=== PATIENT | female | born 1970 | race Caucasian/White ===

== ENCOUNTER 2019-03-12 17:25 | Emergency (ER) | payer OTHER ==
[~2019-03-12] VITALS: Ht 154.9 cm; Wt 87.5 kg
[2019-03-12 19:04] LABS: BILIRUBIN,URINE NEGATIVE (NEGATIVE); CLARITY,URINE SL CLOUDY (CLEAR); COLOR,URINE YELLOW (YELLOW); KETONES,URINE NEGATIVE (NEGATIVE); LEUKOCYTE ESTERASE ,URINE NEGATIVE (NEGATIVE); NITRITE,URINE NEGATIVE (NEGATIVE); PROTEIN,URINE DIPSTICK TRACE (NEGATIVE); URINE UROBILINOGEN 0.2 mg/dL (0.2 - 1)
[2019-03-12 19:18] LABS: BACTERIA,URINE MANY /HPF; EPITHELIAL CELLS,URINE MODERATE /LPF; RBC,URINE 0-5 /HPF (0-5)
[2019-03-12 19:23] LABS: PREGNANCY TEST, URINE NEGATIVE (NEGATIVE)
[2019-03-12] MEDS ORDERED: ONDANSETRON HCL INJ 2MG/ML 2ML 2 MG/ML VIAL IV ONE (20:03)
[2019-03-12] MEDS ORDERED: SODIUM CHLORIDE 0.9% 1000ML 1,000 ML IV STA (20:03)
[2019-03-12] MEDS ORDERED: SODIUM CHLORIDE 0.9% 1000ML 1,000 ML ONE (20:05)
[2019-03-12] MEDS ORDERED: ONDANSETRON HCL INJ 2MG/ML 2ML 2 MG/ML VIAL ONE (20:05)
[2019-03-12] MEDS ORDERED: MORPHINE SULFATE INJ 4 MG/ML INJ 1ML IV ONE (20:30)
[2019-03-12 21:03] LABS: BASOPHILS # (AUTO) 0.1 (0.0-0.1); BASOPHILS % 0.6 % (0.0-1.0); EOSINOPHILS % 0.1 % (0.0-6.0); HEMATOCRIT 42.8 % (34.2-44.1); HEMOGLOBIN 14.8 g/dL (12.0-16.0); LYMPHOCYTES # (AUTO) 1.3 (1.0-3.2); LYMPHOCYTES % 15.4 % (18.0-39.1); MEAN CORPUSCULAR HEMOGLOBIN 31.8 pg (28-32); MEAN CORPUSCULAR HGB CONC 34.6 g/dL (31-35); MONOCYTES # (AUTO) 0.9 (0.2-0.8); MONOCYTES % 10.2 % (4.4-11.3); NEUTROPHILS # (AUTO) 6.3 (2.1-6.9); NEUTROPHILS % 73.2 % (38.7-80.0); PLATELET COUNT 270 x10e3/uL (140-360); RED BLOOD COUNT 4.65 x10e6/uL (3.6-5.1); RED CELL DISTRIBUTION WIDTH 12.9 % (11.7-14.4)
[2019-03-12 21:22] LABS: AMYLASE 67 U/L (25-125); LIPASE 85 U/L (8-78)
[2019-03-12 21:42] LABS: ALBUMIN 3.5 g/dL (3.5-5.0); ALBUMIN/GLOBULIN RATIO 0.9 (0.8-2.0); ANION GAP 16.9 mmol/L (8-16); CALCIUM 9.8 mg/dL (8.4-10.2); CREATININE, SERUM 1.38 mg/dL (0.57-1.11)
[2019-03-12 21:44] LABS: POTASSIUM 2.9 mmol/L (3.5-5.1)
--- NOTE | 2019-03-12 21:45 | NUR ---
RECEIVED CALL FROM LAB TO REPORT CRITICAL K+ OF 2.9, INFORMED DR. DAVIES AND PRIMARY NURSE KATHY SOTO.
[2019-03-12] MEDS ORDERED: POTASSIUM CHLORIDE 20 MEQ TAB CR PO ONE (21:46)
[2019-03-12] MEDS ORDERED: SODIUM CHLORIDE 0.9% 50ML 50 ML ONE (22:30)
[2019-03-12] MEDS ORDERED: IOPAMIDOL 300MG/ML 100 ML INFUS..BTL IV ONE (22:32)
[2019-03-12] MEDS ORDERED: IOPAMIDOL 370 MG/ML 200 ML INFUS..BTL INJ ONE (22:34)
--- NOTE | 2019-03-12 22:51 | Diagnostic Imaging Report ---
EXAM: CT Abdomen and Pelvis WITH contrast INDICATION: ^ABD PAIN ^[id number] ^2199 COMPARISON: None. TECHNIQUE: Abdomen and pelvis were scanned utilizing a multidetector helical scanner from the lung base to the pubic symphysis after administration of IV contrast. Coronal and sagittal reformations were obtained. Dose modulation, iterative reconstruction, and/or weight based adjustment of the mA/kV was utilized to reduce the radiation dose to as low as reasonably achievable. Routine protocol was performed. Scan was performed when during portal venous phase. IV CONTRAST: 100 mL of Isovue-370 ORAL CONTRAST: Water COMPLICATIONS: None RADIATION DOSE: Total DLP: 782.52 mGy*cm Estimated effective dose: (DLP x 0.015 x size factor) mSv CTDIvol has been reviewed. It is below the limits set by the Radiation Protocol Committee (RPC). FINDINGS: LINES and TUBES: None. LOWER THORAX: Mild bibasilar atelectasis, right greater than left. HEPATOBILIARY: No focal hepatic lesions. No biliary ductal dilation. GALLBLADDER: Cholecystectomy. SPLEEN: No splenomegaly. PANCREAS: No focal masses or ductal dilatation. ADRENALS: No adrenal nodules KIDNEYS/URETERS: Kidneys enhance symmetrically. No hydronephrosis. No cystic or solid mass lesions. No stones. GI TRACT: No abnormal distention or evidence of bowel obstruction. ] Wall thickening and mild pericolonic fat stranding and multiple subcentimeter physical and lymph nodes. Appendix is normal. PELVIC ORGANS/BLADDER: Unremarkable. IUD in place. LYMPH NODES: No lymphadenopathy. VESSELS: Unremarkable. PERITONEUM / RETROPERITONEUM: No free air or fluid. BONES: Unremarkable. SOFT TISSUES: Unremarkable. Partially seen bilateral breast implants. IMPRESSION: 1. Ascending colon wall thickening with mild pericolonic fat stranding, concerning for infectious/inflammatory colitis. Multiple adjacent subcentimeter mesocolon lymph nodes probably reactive. Recommend colonoscopy after resolution of inflammation to exclude underlying lesion. Signed by: Dr. Fermin Rogers MD on 03/12/2019 10:47 PM
[2019-04-08] MEDS ORDERED: XANAX0.5 MG PO (08:49)
[2019-04-08] MEDS ORDERED: ZOLPIDEM TARTRAT5 MG PO (08:49)
[2019-04-08] MEDS ORDERED: AMLODIPINE BESYL5 MG PO (08:49)
[2019-04-08] MEDS ORDERED: MESALAMINE1 GM PO (08:49)
[2019-04-08] MEDS ORDERED: LOSARTAN POTASS25 MG PO (08:49)
[2019-04-08] MEDS ORDERED: ALLEGRA ALLERGY60 MG PO (08:49)
[2019-04-08] MEDS ORDERED: OMEPRAZOLE40 MG PO (08:49)
[2019-04-08] MEDS ORDERED: FLONASE INH (08:49)
[2019-04-08] MEDS ORDERED: CHLORDIAZEPOXI1 EACH PO (08:49)
[2019-04-08] MEDS ORDERED: LEVOTHYROXINE50 MCG PO (08:49)
== END 2019-03-12 23:35 | disposition home or self-care (01) ==
LOC: ER 17:25
DX: R10.31 Right lower quadrant pain (principal); R11.2 Nausea with vomiting, unspecified; R19.7 Diarrhea, unspecified; K52.9 Noninfective gastroenteritis and colitis, unspecified; I10 Essential (primary) hypertension; E78.5 Hyperlipidemia, unspecified; E03.9 Hypothyroidism, unspecified; K21.9 Gastro-esophageal reflux disease without esophagitis; Z98.84 Bariatric surgery status
CPT/HCPCS: 36415; 74177; 80053; 81001; 81025; 82150; 83690; 85025; 96374; 99284; J2270; J2405; J7030; Q9967

== ENCOUNTER → 2019-04-10 | Day surgery (SDC) | payer OTHER ==
[2019-04-08 09:23] LABS: BASOPHILS # (AUTO) 0.1 (0.0-0.1); BASOPHILS % 0.6 % (0.0-1.0); EOSINOPHILS # (AUTO) 0.2 (0.0-0.4); EOSINOPHILS % 2.3 % (0.0-6.0); HEMATOCRIT 39.7 % (34.2-44.1); HEMOGLOBIN 13.4 g/dL (12.0-16.0); LYMPHOCYTES # (AUTO) 2.8 (1.0-3.2); LYMPHOCYTES % 33.6 % (18.0-39.1); MEAN CORPUSCULAR HEMOGLOBIN 31.1 pg (28-32); MEAN CORPUSCULAR HGB CONC 33.8 g/dL (31-35); MEAN CORPUSCULAR VOLUME 92.1 fL (81-99); MONOCYTES # (AUTO) 0.4 (0.2-0.8); MONOCYTES % 4.6 % (4.4-11.3); NEUTROPHILS # (AUTO) 4.9 (2.1-6.9); NEUTROPHILS % 58.1 % (38.7-80.0); PLATELET COUNT 317 x10e3/uL (140-360); RED BLOOD COUNT 4.31 x10e6/uL (3.6-5.1); RED CELL DISTRIBUTION WIDTH 13.2 % (11.7-14.4)
[2019-04-08 09:51] LABS: ANION GAP 12.5 mmol/L (8-16); BLOOD UREA NITROGEN 13 mg/dL (7-26); BUN/CREATININE RATIO 18 (6-25); CALCIUM 9.2 mg/dL (8.4-10.2); CARBON DIOXIDE 26 mmol/L (22-29); CHLORIDE 101 mmol/L (98-107); CREATININE, SERUM 0.73 mg/dL (0.57-1.11); EST GLOMERULAR FILTRATION RATE > 60 ML/MIN (60-); GLUCOSE 95 mg/dL (74-118); POTASSIUM 3.5 mmol/L (3.5-5.1); SODIUM 136 mmol/L (136-145)
--- NOTE | 2019-04-08 09:52 | Diagnostic Imaging Report ---
Chest, 2 views, 04/08/2019. History: Preop, plantar fasciitis of the right foot. Comparison: None available. Findings: The cardiomediastinal silhouette and pulmonary vasculature are within normal limits. The lungs are clear without evidence of consolidation or pleural effusion. Mild degenerative changes are noted in the thoracic spine. There are no acute osseous or soft tissue abnormalities. Impression: No acute cardiopulmonary abnormality. Signed by: Sushant Suarez on 04/08/2019 9:49 AM
[~2019-04-10] MED LIST: ACETAMINOPHEN 1000 MG/100 ML 100 ML IV ONE; ALLEGRA ALLERGY60 MG PO; AMLODIPINE BESYL5 MG PO; BUPIVACAINE HCL 0.5% INJ 30 ML VIAL INJ ONE; CEFAZOLIN SOD 1 GM/NS 50ML 100 ML IV ONE; CHLORDIAZEPOXI1 EACH PO; DEXAMETHASONE SOD PHOS INJ 4 MG/ML VIAL ONE; FENTANYL CITRATE/PF 100MCG/2 ML INJ ONE; FLONASE INH; LEVOTHYROXINE50 MCG PO; LIDOCAINE HCL 2% LOCAL INJ 5 ML SDV VIAL INJ ONE; LOSARTAN POTASS25 MG PO; MESALAMINE1 GM PO; MIDAZOLAM HCL 2 MG/2 ML VIAL ONE; MUPIROCIN 2% OINT 22 GM TUBE ONE; OMEPRAZOLE40 MG PO; PROPOFOL IV EMULSION 10 MG/ML 20 ML VIAL ONE; SEVOFLURANE INHAL SOLN 250 ML PEN BTL ONE; XANAX0.5 MG PO; ZOLPIDEM TARTRAT5 MG PO
--- OUTSIDE RECORDS SUMMARY | 2019-04-10 08:06 | XMS REPORT ---
Author Author [facility] Address Unknown Phone Unavailable Care Team Providers Care [employer] Name Role Phone JAYDE HERNANDEZ Unavailable Unavailable Ysabel REYNA Unavailable Unavailable Problems This patient has no known problems. Allergies, Adverse Reactions, Alerts This patient has no known allergies or adverse reactions. Medications This patient has no known medications. Results Test Description Test Time Test Comments Text Results Atomic Results Result Comments CHEST 2 VIEWS 2019-04-08 09:48:00 [place] [address] Patient Name: LENA WRIGHT MR #: [id number] : 1970 Age/Sex: 48/F Req #: [id number] Adm Physician: Ordered by: JAYDE HERNANDEZ DPM Report #: [id number] Location: OR Room/Bed: Procedure: [id number] DX/CHEST 2 VIEWS Exam Date: 04/08/19 Exam Time: 0850 REPORT STATUS: Signed Chest, 2 views, 04/08/2019. History: Preop, plantar fasciitis of the right foot. Comparison: None available. Findings: The cardiomediastinal silhouette and pulmonary vasculature are within normal limits. The lungs are clear without evidence of consolidation or pleural effusion. Mild degenerative changes are noted in the thoracic spine. There are no acute osseous or soft tissue abnormalities. Impression: No acute cardiopulmonary abnormality. Signed by: Toby Suarez on 04/08/2019 9:49 AM Dictated By: TOBY SUAREZ MD 8 Transcribed By: KISHAN on 04/08/19948 COPY TO: JAYDE HERNANDEZ DPM CT ABDOMEN/PELVIS W 2019-03-12 22:42:00 [place] [address] Patient Name: LENA WRIGHT MR #: [id number] : 1970 Age/Sex: 48/F Req #: [id number] Adm Physician: Ordered by: STEPHEN DAVIES MD Report #: [id number] Location: ER Room/Bed: Procedure: [id number] CT/CT ABDOMEN/PELVIS W Exam Date: 03/12/19 Exam Time: 2199 REPORT STATUS: Signed EXAM: CT Abdomen and Pelvis WITH contrast BENITO CATION: ABD PAIN [id number] COMPARISON: None. TECHNIQUE: Abdomen and pelvis were scanned utilizing a multidetector helical scanner from the lung base to the pubic symphysis after administration of IV contrast. Coronal and sagittal reformations were obtained. Dose modulation, iterative reconstruction, and/or weight based adjustment of the mA/kV was utilized to reduce the radiation dose to as low as reasonably achievable. Routine protocol was performed. Scan was performed when during portal venous phase. IV CONTRAST: 100 mL of Isovue-370 ORAL CONTRAST: Water COMPLICATIONS: None RADIATION DOSE: Total DLP: 782.52 mGy*cm Estimated effective dose: (DLP x 0.015 x size factor) mSv CTDIvol has been reviewed. It is below the limits set by the Radiation Protocol Committee (RPC). FINDINGS: LINES and TUBES: None. LOWER THORAX: Mild bibasilar atelectasis, right greater than left. HEPATOBILIARY: No focal hepatic lesions. No biliary ductal dilation. GALLBLADDER: Cholecystectomy. SPLEEN: No splenomegaly. PANCREAS: No focal masses or ductal dilatation. ADRENALS: No adrenal nodules KIDNEYS/URETERS: Kidneys enhance symmetrically. No hydronephrosis. No cystic or solid mass lesions. No stones. GI TRACT: No abnormal distention or evidence of bowel obstruction. ] Wall thickening and mild pericolonic fat stranding and multiple subcentimeter physical and lymph nodes. Appendix is normal. PELVIC ORGANS/BLADDER: Unremarkable. IUD in place. LYMPH NODES: No lymphadenopathy. VESSELS: Unremarkable. PERITONEUM / RETROPERITONEUM: No free air or fluid. BONES: Unremarkable. SOFT TISSUES: Unremarkable. Partially seen bilateral breast implants. IMPRESSION: 1. Ascending colon wall thickening with mild pericolonic fat stranding, concerning for infectious/inflammatory colitis. Multiple adjacent subcentimeter mesocolon lymph nodes probably reactive. Recommend colonoscopy after resolution of inflammation to exclude underlying lesion. Signed by: Dr. Fermin Llanes MD on 03/12/2019 10:47 PM Dictated By: FERMIN LLANES MD 48 Transcribed By: KISHAN on 03/12/192246 COPY TO: STEPHEN DAVIES MD
[2019-04-10 11:35] VITALS: BP 127/89
--- NOTE | 2019-04-11 01:39 | Operative Report ---
DATE OF PROCEDURE: 04/10/2019 SURGEON: Angel Guzman DPM PREOPERATIVE DIAGNOSES: Plantar fasciitis, plantar calcaneal spur. POSTOPERATIVE DIAGNOSES: Plantar fasciitis, plantar calcaneal spur. TITLE OF OPERATION: Endoscopic plantar fasciotomy of the right foot. ANESTHESIA: General endotracheal. HEMOSTASIS: A right thigh tourniquet at 350 mmHg. PROCEDURE IN DETAIL: The patient was taken to the operating room in a mildly sedated state and placed on the operating table in supine position. Following induction of general anesthetic, the right lower extremity was elevated to 60 degrees to exsanguinate before inflating the pneumatic thigh tourniquet to 350 mmHg to create good hemostasis. Right lower extremity was placed on the operating table prior to performing the following procedure: Procedure #1: Endoscopic plantar fasciotomy of the right foot, where a medial stab incision was placed and cannula advanced across the plantar aspect of the plantar fascia. A slot was used in order to allow for the medial band to be delivered into the visual spectrum of the camera. A hook knife was used to elongate the medial portion and the leading edge of the central band in order to best approximate the appropriate length of the plantar fascia. The area was irrigated with copious amounts of sterile saline solution and skin closure with 4-0 nylon. The release of the pneumatic thigh tourniquet showed normal hyperemic flush to all digits of the right foot. The fascia was supplemented with human tissue allograft. The patient left the operating room, vital signs stable in apparent satisfactory condition, having tolerated both anesthetic and procedure very well. EMANUEL Prado/ROXANE /[id number]
== END | disposition home or self-care (01) ==
LOC: OR 08:03
PROVIDERS: ATTEND Podiatrist Foot Surgery
DX: M72.2 Plantar fascial fibromatosis (principal); M77.31 Calcaneal spur, right foot; M79.671 Pain in right foot; Z01.810 Encounter for preprocedural cardiovascular examination; Z01.812 Encounter for preprocedural laboratory examination; Z01.811 Encounter for preprocedural respiratory examination; E03.9 Hypothyroidism, unspecified; F17.210 Nicotine dependence, cigarettes, uncomplicated; I10 Essential (primary) hypertension; K58.9 Irritable bowel syndrome, unspecified
CPT/HCPCS: 36415; 71046; 80048; 81025; 85025; 93005; J0690; J1100; J2001; J2250; J3010; Q4100

== ENCOUNTER 2021-01-20 18:26 | Inpatient (IN) | payer OTHER ==
[~2021-01-20] VITALS: Ht 154.9 cm; Wt 87.5 kg
[~2021-01-20 18:26] MED LIST changes: -ACETAMINOPHEN 1000 MG/100 ML 100 ML IV ONE; -BUPIVACAINE HCL 0.5% INJ 30 ML VIAL INJ ONE; -CEFAZOLIN SOD 1 GM/NS 50ML 100 ML IV ONE; -DEXAMETHASONE SOD PHOS INJ 4 MG/ML VIAL ONE; -FENTANYL CITRATE/PF 100MCG/2 ML INJ ONE; -LIDOCAINE HCL 2% LOCAL INJ 5 ML SDV VIAL INJ ONE; -MIDAZOLAM HCL 2 MG/2 ML VIAL ONE; -MUPIROCIN 2% OINT 22 GM TUBE ONE; -PROPOFOL IV EMULSION 10 MG/ML 20 ML VIAL ONE; -SEVOFLURANE INHAL SOLN 250 ML PEN BTL ONE
[2021-01-20] MEDS ORDERED: FAMOTIDINE 20 MG/2 ML VIAL IV STA (18:42)
[2021-01-20] MEDS ORDERED: ONDANSETRON HCL INJ 2MG/ML 2ML 2 MG/ML VIAL IV STA (18:42)
[2021-01-20] MEDS ORDERED: SODIUM CHLORIDE 0.9% 1000ML 1,000 ML IV STA (18:42)
[2021-01-20 19:30] LABS: BASOPHILS # (AUTO) 0.1 (0.0-0.1); BASOPHILS % 0.7 % (0.0-1.0); EOSINOPHILS % 0.4 % (0.0-6.0); HEMATOCRIT 47.2 % (34.2-44.1); HEMOGLOBIN 16.4 g/dL (12.0-16.0); LYMPHOCYTES # (AUTO) 1.2 (1.0-3.2); MEAN CORPUSCULAR HEMOGLOBIN 32.2 pg (28-32); MEAN CORPUSCULAR HGB CONC 34.7 g/dL (31-35); MEAN CORPUSCULAR VOLUME 92.5 fL (81-99); MONOCYTES # (AUTO) 0.3 (0.2-0.8); MONOCYTES % 4.3 % (4.4-11.3); NEUTROPHILS # (AUTO) 5.4 (2.1-6.9); NEUTROPHILS % 76.9 % (38.7-80.0); PLATELET COUNT 312 x10e3/uL (140-360); RED CELL DISTRIBUTION WIDTH 11.9 % (11.7-14.4)
[2021-01-20] MEDS ORDERED: LOSARTAN-HCTZ1 EAC1 PO (19:44)
[2021-01-20 19:48] LABS: ALANINE AMINOTRANSFERASE 71 IU/L (0-55); ALBUMIN 4.5 g/dL (3.5-5.0); ALBUMIN/GLOBULIN RATIO 1.2 (0.8-2.0); ALKALINE PHOSPHATASE 106 IU/L (40-150); ANION GAP 24.1 mmol/L (8-16); BLOOD UREA NITROGEN 9 mg/dL (7-26); BUN/CREATININE RATIO 10 (6-25); CALCIUM 11.5 mg/dL (8.4-10.2); CARBON DIOXIDE 28 mmol/L (22-29); CHLORIDE 87 mmol/L (98-107); CREATININE, SERUM 0.89 mg/dL (0.57-1.11); EST GLOMERULAR FILTRATION RATE > 60 ML/MIN (60-); GLUCOSE 192 mg/dL (74-118); LIPASE 21 U/L (8-78); POTASSIUM 3.1 mmol/L (3.5-5.1); SODIUM 136 mmol/L (136-145)
[2021-01-20] MEDS ORDERED: IOPAMIDOL 370 MG/ML 200 ML INFUS..BTL INJ ONE (20:17)
[2021-01-20] MEDS ORDERED: SODIUM CHLORIDE 0.9% 50ML 50 ML ONE (20:17)
[2021-01-20] MEDS ORDERED: MORPHINE SULFATE INJ 4 MG/ML INJ 1ML IV STA (20:33)
[2021-01-20] MEDS ORDERED: HYDRALAZINE HCL 20 MG/ML VIAL IV STA (21:16)
[2021-01-20] MEDS ORDERED: HYDRALAZINE HCL 20 MG/ML VIAL ONE (21:20)
[2021-01-20] MEDS: SODIUM CHLORIDE 0.9% 1000ML 1,000 ML IV SCH (22:30)
[2021-01-20] MEDS ORDERED: HYDRALAZINE HCL 20 MG/ML VIAL IV PRN (22:30)
[2021-01-20] MEDS ORDERED: CIPROFLOXACIN 400 MG/D5W 200ML 200 ML IV SCH (22:30)
[2021-01-20] MEDS: METRONIDAZOLE 500MG/NS 100ML 100 ML IV SCH (22:30)
[2021-01-20] MEDS ORDERED: MORPHINE SULFATE INJ 4 MG/ML INJ 1ML IV PRN (22:30)
[2021-01-20] MEDS ORDERED: ONDANSETRON HCL INJ 2MG/ML 2ML 2 MG/ML VIAL IV PRN (23:00)
[2021-01-20] MEDS: FAMOTIDINE 20 MG/2 ML VIAL IV SCH (23:42)
[2021-01-21] VITALS (10 sets, daily range): BP systolic 160–194; BP diastolic 93–118
[2021-01-21] MEDS ORDERED: HYDROMORPHONE 1MG/1ML INJ IV STA (01:00)
[2021-01-21 06:01] LABS: BASOPHILS % 0.3 % (0.0-1.0); EOSINOPHILS % 0.1 % (0.0-6.0); HEMATOCRIT 43.7 % (34.2-44.1); LYMPHOCYTES # (AUTO) 1.7 (1.0-3.2); LYMPHOCYTES % 18.8 % (18.0-39.1); MEAN CORPUSCULAR HEMOGLOBIN 31.8 pg (28-32); MEAN CORPUSCULAR HGB CONC 34.3 g/dL (31-35); MEAN CORPUSCULAR VOLUME 92.8 fL (81-99); MONOCYTES # (AUTO) 0.4 (0.2-0.8); NEUTROPHILS # (AUTO) 6.7 (2.1-6.9); PLATELET COUNT 300 x10e3/uL (140-360); RED BLOOD COUNT 4.71 x10e6/uL (3.6-5.1)
[2021-01-21] MEDS ORDERED: BACLOFEN10 MG PO (06:23)
[2021-01-21 06:24] LABS: ALANINE AMINOTRANSFERASE 58 IU/L (0-55); ALBUMIN 4.1 g/dL (3.5-5.0); ALBUMIN/GLOBULIN RATIO 1.2 (0.8-2.0); ALKALINE PHOSPHATASE 91 IU/L (40-150); ANION GAP 23.1 mmol/L (8-16); BLOOD UREA NITROGEN 7 mg/dL (7-26); BUN/CREATININE RATIO 9 (6-25); CALCIUM 9.9 mg/dL (8.4-10.2); CARBON DIOXIDE 22 mmol/L (22-29); CHLORIDE 94 mmol/L (98-107); CREATININE, SERUM 0.79 mg/dL (0.57-1.11); EST GLOMERULAR FILTRATION RATE > 60 ML/MIN (60-); GLUCOSE 174 mg/dL (74-118); POTASSIUM 3.1 mmol/L (3.5-5.1); SODIUM 136 mmol/L (136-145)
[2021-01-21] MEDS ORDERED: ALLEGRA-D 24 H1 EACH PO (06:30)
[2021-01-21] MEDS ORDERED: ONDANSETRON ODT8 MG PO (06:30)
[2021-01-21] MEDS ORDERED: FLONASE ALLERG9.9 ML INH (06:32)
[2021-01-21] MEDS: METRONIDAZOLE 500MG/NS 100ML 100 ML IV SCH (09:13)
[2021-01-21] MEDS: PROMETHAZINE 12.5MG/ NACL 0.9% 12.5 MG/50 ML BAG IV PRN ×4 (09:13→22:25)
[2021-01-21] MEDS: FAMOTIDINE 20 MG/2 ML VIAL IV SCH (09:13)
[2021-01-21] MEDS: HYDROMORPHONE 1MG/1ML INJ IV PRN ×4 (09:13→22:25)
[2021-01-21] MEDS ORDERED: ALPRAZOLAM 0.5 MG TAB PO PRN (12:15)
[2021-01-21] MEDS ORDERED: POTASSIUM CHLORIDE 20 MEQ TAB CR PO ONE (12:30)
[2021-01-21] MEDS: SODIUM CHLORIDE 0.9% 1000ML 1,000 ML IV SCH ×2 (12:51→22:25)
[2021-01-21] MEDS: LOSARTAN POTASSIUM 25 MG TAB PO SCH (13:07)
[2021-01-21] MEDS: AMLODIPINE BESYLATE 5 MG TAB PO SCH (13:09)
[2021-01-21] MEDS: PIPERACILLIN/TAZOBACTAM 3.375 GM in SODIUM CHLORIDE 0.9% 50ML 50 ML IV SCH ×2 (14:55→22:22)
[2021-01-21] MEDS: ENOXAPARIN SOD INJ 40 MG/0.4 ML SYR SC SCH (17:00)
[2021-01-22] VITALS (7 sets, daily range): BP systolic 136–171; BP diastolic 78–103
[2021-01-22] MEDS: CLONIDINE HCL 0.1 MG TAB PO PRN ×2 (00:31→13:10)
[2021-01-22] MEDS: SODIUM CHLORIDE 0.9% 1000ML 1,000 ML IV SCH ×2 (01:08→22:01)
[2021-01-22] MEDS: PANTOPRAZOLE 40 MG 10ML VIAL IV SCH ×2 (04:13→16:22)
[2021-01-22] MEDS: PROMETHAZINE 12.5MG/ NACL 0.9% 12.5 MG/50 ML BAG IV PRN ×3 (04:13→14:01)
[2021-01-22] MEDS: HYDROMORPHONE 1MG/1ML INJ IV PRN ×2 (04:13→09:15)
[2021-01-22] MEDS: PIPERACILLIN/TAZOBACTAM 3.375 GM in SODIUM CHLORIDE 0.9% 50ML 50 ML IV SCH ×3 (06:09→22:03)
[2021-01-22] MEDS: LOSARTAN POTASSIUM 25 MG TAB PO SCH ×2 (09:15→16:22)
[2021-01-22] MEDS: AMLODIPINE BESYLATE 5 MG TAB PO SCH ×2 (09:15→16:22)
[2021-01-22] MEDS: ACETAMINOPHEN 325 MG TAB PO PRN ×2 (11:34→17:57)
[2021-01-22] MEDS ORDERED: BISACODYL 5 MG TAB EC PO ONE ×2 (14:00→16:00)
[2021-01-22] MEDS: ENOXAPARIN SOD INJ 40 MG/0.4 ML SYR SC SCH (16:23)
[2021-01-22] MEDS ORDERED: CITRATE OF MAGNESIA 300ML BOTTLE PO ONE (21:00)
[2021-01-23] VITALS (8 sets, daily range): BP systolic 137–164; BP diastolic 87–103
[2021-01-23] MEDS: SODIUM CHLORIDE 0.9% 1000ML 1,000 ML IV SCH ×2 (00:06→17:26)
[2021-01-23] MEDS: PANTOPRAZOLE 40 MG 10ML VIAL IV SCH ×2 (04:00→15:15)
[2021-01-23] MEDS ORDERED: CITRATE OF MAGNESIA 300ML BOTTLE PO ONE (05:00)
[2021-01-23] MEDS: PIPERACILLIN/TAZOBACTAM 3.375 GM in SODIUM CHLORIDE 0.9% 50ML 50 ML IV SCH ×3 (05:54→21:25)
[2021-01-23] MEDS: LOSARTAN POTASSIUM 25 MG TAB PO SCH ×2 (09:38→17:00)
[2021-01-23] MEDS: AMLODIPINE BESYLATE 5 MG TAB PO SCH ×2 (09:38→17:00)
[2021-01-23] MEDS: ENOXAPARIN SOD INJ 40 MG/0.4 ML SYR SC SCH (17:00)
[2021-01-23] MEDS ORDERED: PROPOFOL IV EMULSION 10 MG/ML 20 ML VIAL ONE (17:37)
[2021-01-23] MEDS ORDERED: HYOSCYAMINE SULFATE 0.5 MG/ML INJ ONE ×2 (17:37→18:36)
[2021-01-23] MEDS ORDERED: LIDOCAINE HCL 2% LOCAL INJ 5 ML SDV VIAL INJ ONE (17:37)
[2021-01-23 19:38] LABS: WBC,FECAL (FECAL LACTOFERRIN) NEGATIVE (NEGATIVE)
[2021-01-23] MEDS ORDERED: MESALAMINE 1,000 MG SUPP RC SCH (21:00)
[2021-01-23] MEDS: HYDROMORPHONE 1MG/1ML INJ IV PRN (21:16)
[2021-01-24 00:27] VITALS: BP 156/99
[2021-01-24] MEDS: SODIUM CHLORIDE 0.9% 1000ML 1,000 ML IV SCH (02:05)
[2021-01-24 04:36] VITALS: BP 145/80
[2021-01-24] MEDS: PANTOPRAZOLE 40 MG 10ML VIAL IV SCH ×2 (04:43→14:49)
[2021-01-24] MEDS: PIPERACILLIN/TAZOBACTAM 3.375 GM in SODIUM CHLORIDE 0.9% 50ML 50 ML IV SCH ×2 (05:29→14:21)
[2021-01-24 08:20] VITALS: BP 160/90
[2021-01-24 08:38] VITALS: BP 160/90
[2021-01-24] MEDS: LOSARTAN POTASSIUM 25 MG TAB PO SCH (09:39)
[2021-01-24] MEDS: AMLODIPINE BESYLATE 5 MG TAB PO SCH (09:39)
[2021-01-24 10:06] LABS: C DIFFICILE TOXIN A&B AMP PROB NEGATIVE (NEGATIVE)
[2021-01-24 11:34] VITALS: BP 154/98
[2021-01-24] MEDS ORDERED: CANASA1000 MG RC (15:19)
[2021-01-24] MEDS ORDERED: BENTYL10 MG/1 ML PO (15:19)
[2021-01-24] MEDS ORDERED: LOSARTAN POTASSIUM 25 MG TAB PO SCH (17:00)
== END 2021-01-24 15:58 | disposition home or self-care (01) | DRG 392 ==
LOC: ER 18:50 → ERHOLD 22:20 → MED/SURG2 22:47 → OBSVTOIN 01-21 09:56
PROVIDERS: ADMIT Internal Medicine; ATTEND Internal Medicine
PROC: 0DBK8ZZ Excision of Ascending Colon, Via Natural or Artificial Opening Endoscopic (ICD-10-PCS; 2021-01-23)
PROC: 0DBM8ZZ Excision of Descending Colon, Via Natural or Artificial Opening Endoscopic (ICD-10-PCS; 2021-01-23)
PROC: 0DBN8ZZ Excision of Sigmoid Colon, Via Natural or Artificial Opening Endoscopic (ICD-10-PCS; principal; 2021-01-23 17:50)
PROC: 0DB98ZX Excision of Duodenum, Via Natural or Artificial Opening Endoscopic, Diagnostic (ICD-10-PCS; 2021-01-23 17:50)
PROC: 0DB78ZX Excision of Stomach, Pylorus, Via Natural or Artificial Opening Endoscopic, Diagnostic (ICD-10-PCS; 2021-01-23 17:50)
DX: K52.9 Noninfective gastroenteritis and colitis, unspecified (principal); K62.89 Other specified diseases of anus and rectum; E87.6 Hypokalemia; I10 Essential (primary) hypertension; Z20.822 Contact with and (suspected) exposure to COVID-19; K22.70 Barrett's esophagus without dysplasia; K44.9 Diaphragmatic hernia without obstruction or gangrene; K63.5 Polyp of colon; K31.7 Polyp of stomach and duodenum; K64.8 Other hemorrhoids
CPT/HCPCS: 36415; 43239; 45380; 45385; 74177; 80053; 80320; 83630; 83690; 83880; 83993; 85025; 85651; 86140; 86256; 86671; 87045; 87177; 87328; 87493; 88305; 88312; 93005; 96360; 96361; 99284; G0378; J0360; J1170; J1650; J1980; J2001; J2270; J2405; J2543; J2550; J7030; Q9967; U0002

== ENCOUNTER → 2021-02-10 | Outpatient (CLI) | payer OTHER ==
[~2021-02-10] MED LIST changes: +ALLEGRA-D 24 H1 EACH PO; +BACLOFEN10 MG PO; +BENTYL10 MG/1 ML PO; +CANASA1000 MG RC; +FLONASE ALLERG9.9 ML INH; +LOSARTAN-HCTZ1 EAC1 PO; +ONDANSETRON ODT8 MG PO; +PHENERGAN25 MG/1 ML PO
== END ==
LOC: DX 02-08 09:43
PROVIDERS: ATTEND Internal Medicine Gastroenterology
DX: K51.811 Other ulcerative colitis with rectal bleeding (principal)
CPT/HCPCS: 74250

== ENCOUNTER → 2021-02-16 | Day surgery (SDC) | payer OTHER ==
[~2021-02-16] MED LIST changes: +FENTANYL CITRATE/PF 100MCG/2 ML INJ ONE; +MIDAZOLAM HCL 5 MG/ML VIAL ONE; +POVIDONE IODINE 0.05% 0.05 % ML PO ONE; +PROPOFOL IV EMULSION 10 MG/ML 20 ML VIAL ONE
[2021-02-16 13:00] VITALS: BP 124/95
== END | disposition home or self-care (01) ==
LOC: OR 09:39
PROVIDERS: ATTEND Internal Medicine Gastroenterology
DX: D13.2 Benign neoplasm of duodenum (principal); K29.60 Other gastritis without bleeding; K31.9 Disease of stomach and duodenum, unspecified; K20.90 Esophagitis, unspecified without bleeding; K21.9 Gastro-esophageal reflux disease without esophagitis; K44.9 Diaphragmatic hernia without obstruction or gangrene; K51.80 Other ulcerative colitis without complications; E03.9 Hypothyroidism, unspecified; I10 Essential (primary) hypertension; Z68.38 Body mass index [BMI] 38.0-38.9, adult
CPT/HCPCS: 43239; 81025; J2704; J2250; J3010

== ENCOUNTER → 2021-03-09 | Outpatient (CLI) | payer OTHER ==
[~2021-03-09] MED LIST changes: -FENTANYL CITRATE/PF 100MCG/2 ML INJ ONE; -MIDAZOLAM HCL 5 MG/ML VIAL ONE; -POVIDONE IODINE 0.05% 0.05 % ML PO ONE; -PROPOFOL IV EMULSION 10 MG/ML 20 ML VIAL ONE
== END ==
LOC: DX 08:31
PROVIDERS: ATTEND Internal Medicine Gastroenterology
DX: D13.2 Benign neoplasm of duodenum (principal); K29.60 Other gastritis without bleeding
CPT/HCPCS: 74250

== ENCOUNTER 2023-10-29 07:16 | Inpatient (IN) | payer OTHER ==
[~2023-10-29] VITALS: Ht 154.9 cm; Wt 74.8 kg
[2023-10-29] VITALS (7 sets, daily range): BP systolic 126–194; BP diastolic 70–106; PULSE 84–106; RESP 18–21; TEMP 98.7–99.2; O2SAT 97–100
[~2023-10-29 07:16] MED LIST changes: +AMBIEN10 MG PO; +DICYCLOMINE HCL20 MG PO; +LEVOTHYROXINE175 MCG PO; +LEVSIN-SL0.125 MG SL; +MOUNJARO7.5 MG/0.5 SQ; +PANTOPRAZOLE SO40 MG PO; +PENTASA500 MG PO; +PHENERGAN SUPP25 MG PR; +POTASSIUM CHLO10 ME1 PO; +PROMETHAZINE HC25 M1 PO; +REGLAN10 MG PO; +XANAX1 MG PO
[2023-10-29] MEDS: SODIUM CHLORIDE 0.9% 1000ML 1,000 ML IV STA (08:02)
[2023-10-29] MEDS: ONDANSETRON HCL INJ 2MG/ML 2ML 2 MG/ML VIAL IV STA (08:02)
[2023-10-29] MEDS: FAMOTIDINE 20 MG/2 ML VIAL IV STA (08:03)
[2023-10-29] MEDS: DICYCLOMINE HCL 20 MG/2 ML VIAL IM ONE (08:06)
[2023-10-29 08:10] LABS: BASOPHILS % 0.5 % (0.0-1.0); HEMATOCRIT 47.4 % (34.2-44.1); HEMOGLOBIN 15.8 g/dL (12.0-16.0); LYMPHOCYTES # (AUTO) 1.2 (1.0-3.2); LYMPHOCYTES % 13.7 % (18.0-39.1); MEAN CORPUSCULAR HEMOGLOBIN 29.2 pg (28-32); MEAN CORPUSCULAR HGB CONC 33.3 g/dL (31-35); MEAN CORPUSCULAR VOLUME 87.5 fL (81-99); MONOCYTES # (AUTO) 0.3 (0.2-0.8); MONOCYTES % 2.9 % (4.4-11.3); NEUTROPHILS # (AUTO) 7.3 (2.1-6.9); NEUTROPHILS % 82.6 % (38.7-80.0); PLATELET COUNT 384 x10e3/uL (140-360); RED BLOOD COUNT 5.42 x10e6/uL (3.6-5.1); RED CELL DISTRIBUTION WIDTH 13.2 % (11.7-14.4); WHITE BLOOD COUNT 8.84 x10e3/uL (4.8-10.8)
[2023-10-29 08:42] LABS: INR 0.9; PROTHROMBIN TIME 12.3 seconds (11.9-14.5)
[2023-10-29 08:43] LABS: PARTIAL THROMBOPLASTIN TIME 23.5 seconds (23.8-35.5)
[2023-10-29 08:53] LABS: ALANINE AMINOTRANSFERASE 21 IU/L (0-55); ALBUMIN 5.1 g/dL (3.5-5.0); ALBUMIN/GLOBULIN RATIO 1.3 (0.8-2.0); ALKALINE PHOSPHATASE 69 IU/L (40-150); ANION GAP 20.7 mmol/L (8-16); BILIRUBIN,TOTAL 0.7 mg/dL (0.2-1.2); BLOOD UREA NITROGEN 14 mg/dL (7-26); BUN/CREATININE RATIO 18 (6-25); CALCIUM 10.9 mg/dL (8.4-10.2); CARBON DIOXIDE 23 mmol/L (22-29); CHLORIDE 94 mmol/L (98-107); CREATINE KINASE 59 IU/L (29-168); CREATININE, SERUM 0.78 mg/dL (0.57-1.11); EST GLOMERULAR FILTRATION RATE 92 ML/MIN (>=60); GLUCOSE 148 mg/dL (74-118); LIPASE 14 U/L (8-78); MAGNESIUM 1.9 MG/DL (1.3-2.1); SODIUM 135 mmol/L (136-145); TOTAL PROTEIN 9.1 g/dL (6.5-8.1)
[2023-10-29 09:00] LABS: POTASSIUM 2.7 mmol/L (3.5-5.1)
[2023-10-29] MEDS ORDERED: IOPAMIDOL 370 MG/ML 100 ML INFUS..BTL INJ ONE (09:05)
[2023-10-29 09:07] LABS: AMPHETAMINES SCREEN,URINE NEGATIVE (NEGATIVE); BENZODIAZEPINES SCREEN,URINE POSITIVE (NEGATIVE); CANNABINOIDS SCREEN,URINE POSITIVE (NEGATIVE); METHADONE SCREEN, URINE NEGATIVE (NEGATIVE); OPIATES SCREEN,URINE NEGATIVE (NEGATIVE); PHENCYCLIDINE SCREEN,URINE NEGATIVE (NEGATIVE)
[2023-10-29 09:27] LABS: CLARITY,URINE SL CLOUDY (CLEAR); COLOR,URINE YELLOW (YELLOW); GLUCOSE, URINE NEGATIVE (NEGATIVE); LEUKOCYTE ESTERASE ,URINE NEGATIVE (NEGATIVE); NITRITE,URINE NEGATIVE (NEGATIVE); PH,URINE 8.5 (5 - 7); PROTEIN,URINE DIPSTICK 1+ (NEGATIVE)
[2023-10-29 09:28] LABS: BILIRUBIN,URINE SMALL (NEGATIVE); KETONES,URINE 2+ (NEGATIVE); URINE UROBILINOGEN 0.2 mg/dL (0.2 - 1)
[2023-10-29 09:31] LABS: AMORPHOUS SEDIMENT,URINE MODERATE (FEW); BACTERIA,URINE MANY /HPF; EPITHELIAL CELLS,URINE MODERATE /LPF; RBC,URINE 0-5 /HPF (0-5); WBC,URINE (MAN) 0-5 /HPF (0-5)
[2023-10-29] MEDS ORDERED: ONDANSETRON HCL INJ 2MG/ML 2ML 2 MG/ML VIAL IV PRN (09:45)
[2023-10-29 09:58] LABS: TROPONIN I < 0.05 ng/mL (0.0-0.40)
[2023-10-29] MEDS: KCL 40MEQ/0.9% SOD CHL 1,000 ML IV ONE (10:54)
[2023-10-29] MEDS: DIPHENHYDRAMINE HCL INJ 50 MG/ML VIAL IV ONE (10:55)
[2023-10-29] MEDS: HALOPERIDOL LACTATE 5 MG/ML VIAL IV ONE (10:55)
[2023-10-29] MEDS ORDERED: ACETAMINOPHEN 325 MG TAB PO PRN (11:30)
[2023-10-29] MEDS ORDERED: POTASSIUM CHLORIDE 20MEQ/100ML 200 ML IV ONE (12:00)
[2023-10-29] MEDS ORDERED: POTASSIUM PHOSPHATE 15 MM in SODIUM CHLORIDE 0.9% 250ML 250 ML IV ONE (14:00)
[2023-10-29] MEDS: HYDROMORPHONE 1MG/1ML INJ IV PRN (16:15)
[2023-10-29] MEDS: HYDRALAZINE HCL 20 MG/ML VIAL IV PRN (16:30)
[2023-10-29] MEDS: POTASSIUM CHLORIDE 20MEQ/100ML 200 ML IV ONE (17:49)
[2023-10-29] MEDS: NIFEDIPINE CR 30 MG TAB PO ONE (17:49)
[2023-10-29] MEDS: POTASSIUM PHOSPHATE 15 MM in SODIUM CHLORIDE 0.9% 250ML 250 ML IV ONE (19:23)
[2023-10-29] MEDS ORDERED: RESTORIL15 MG PO (19:37)
[2023-10-29] MEDS ORDERED: PROMETHAZINE HC25 M1 PO (19:37)
[2023-10-29] MEDS ORDERED: IMODIUM2 MG PO (19:41)
[2023-10-29] MEDS: PROMETHAZINE HCL 25 MG TAB PO PRN (20:51)
[2023-10-29] MEDS ORDERED: LOPERAMIDE HCL 2 MG CAP PO PRN (21:00)
[2023-10-29] MEDS: CHLORDIAZEPOXIDE/CLIDINIUM 1 CAP PO SCH (21:47)
[2023-10-29] MEDS: ZOLPIDEM TARTRATE 10 MG TAB PO SCH (21:48)
[2023-10-29] MEDS: DICYCLOMINE HCL 20 MG TAB PO SCH (21:48)
[2023-10-29] MEDS: TEMAZEPAM 15 MG CAP PO SCH (21:48)
[2023-10-29] MEDS: BACLOFEN 10 MG TAB PO SCH (21:48)
[2023-10-29] MEDS: LABETALOL HCL 5 MG/ML 20ML VIAL IV STA ×2 (21:50→21:55)
[2023-10-30] VITALS (7 sets, daily range): BP systolic 97–189; BP diastolic 58–107; PULSE 83–108; RESP 18; TEMP 98.1–98.7; O2SAT 98–100
[2023-10-30] MEDS: METOCLOPRAMIDE HCL 10 MG/2ML VIAL IV SCH (00:15)
[2023-10-30] MEDS: LEVOTHYROXINE SODIUM 75 MCG TAB PO SCH (06:18)
[2023-10-30] MEDS: LEVOTHYROXINE SODIUM 100 MCG TAB PO SCH (06:18)
[2023-10-30 06:43] LABS: BASOPHILS # (AUTO) 0.1 (0.0-0.1); BASOPHILS % 0.5 % (0.0-1.0); EOSINOPHILS % 0.3 % (0.0-6.0); HEMATOCRIT 42.8 % (34.2-44.1); LYMPHOCYTES # (AUTO) 4.2 (1.0-3.2); LYMPHOCYTES % 38.4 % (18.0-39.1); MEAN CORPUSCULAR HEMOGLOBIN 29.6 pg (28-32); MEAN CORPUSCULAR HGB CONC 32.7 g/dL (31-35); MEAN CORPUSCULAR VOLUME 90.5 fL (81-99); MONOCYTES # (AUTO) 0.7 (0.2-0.8); MONOCYTES % 6.3 % (4.4-11.3); NEUTROPHILS # (AUTO) 5.9 (2.1-6.9); NEUTROPHILS % 54.1 % (38.7-80.0); PLATELET COUNT 340 x10e3/uL (140-360); RED BLOOD COUNT 4.73 x10e6/uL (3.6-5.1); RED CELL DISTRIBUTION WIDTH 13.5 % (11.7-14.4); WHITE BLOOD COUNT 10.84 x10e3/uL (4.8-10.8)
[2023-10-30 07:04] LABS: ALBUMIN 4.1 g/dL (3.5-5.0); ALBUMIN/GLOBULIN RATIO 1.3 (0.8-2.0); ANION GAP 14.3 mmol/L (8-16); BILIRUBIN,TOTAL 0.6 mg/dL (0.2-1.2); CREATININE, SERUM 0.73 mg/dL (0.57-1.11); MAGNESIUM 2.1 MG/DL (1.3-2.1); POTASSIUM 3.3 mmol/L (3.5-5.1); TOTAL PROTEIN 7.2 g/dL (6.5-8.1)
[2023-10-30] MEDS ORDERED: SODIUM CHLORIDE 0.9% 250ML 250 ML ONE (08:18)
[2023-10-30] MEDS ORDERED: LEVOTHYROXINE SODIUM 100 MCG TAB PO SCH (09:00)
[2023-10-30] MEDS: MESALAMINE 500 MG CAPCR PO SCH (09:00)
[2023-10-30] MEDS: FLUTICASONE PROPIONATE NASAL SPRAY NS SCH (09:00)
[2023-10-30] MEDS: ONDANSETRON HCL 4 MG ORAL DISINTEGRATING TAB PO PRN (09:36)
[2023-10-30] MEDS: AMLODIPINE BESYLATE 5 MG TAB PO SCH (10:04)
[2023-10-30] MEDS: HYDROCHLOROTHIAZIDE 25 MG TAB PO SCH (10:17)
[2023-10-30] MEDS: LOSARTAN POTASSIUM 100 MG TAB PO SCH (10:17)
[2023-10-30] MEDS: NIFEDIPINE CR 30 MG TAB PO SCH (10:18)
[2023-10-30] MEDS: POTASSIUM CHLORIDE 20 MEQ TAB CR PO ONE (11:21)
[2023-10-30] MEDS: CHLORDIAZEPOXIDE/CLIDINIUM 1 CAP PO SCH (15:53)
[2023-10-30] MEDS: POTASSIUM BICARBONATE/CIT AC 20 MEQ TABLET.EFF PO ONE (17:18)
[2023-10-31 04:20] VITALS: BP 166/93; PULSE 112; RESP 18; TEMP 98; O2SAT 96
[2023-10-31 06:15] LABS: ANION GAP 14.9 mmol/L (8-16); CALCIUM 9.9 mg/dL (8.4-10.2); CREATININE, SERUM 0.65 mg/dL (0.57-1.11)
[2023-10-31 06:20] LABS: POTASSIUM 2.9 mmol/L (3.5-5.1)
[2023-10-31] MEDS ORDERED: POTASSIUM CHLORIDE 10MEQ/100ML 100 ML IV ONE (08:45)
[2023-10-31 09:00] VITALS: BP 172/94; PULSE 104; RESP 18; TEMP 98.5; O2SAT 98
[2023-10-31 09:01] VITALS: BP 172/94; PULSE 104; RESP 18; TEMP 98.5; O2SAT 98
[2023-10-31] MEDS: POTASSIUM CHLORIDE 10MEQ/100ML 400 ML IV ONE (09:35)
[2023-10-31] MEDS: POTASSIUM CHLORIDE 20 MEQ TAB CR PO ONE (09:36)
[2023-10-31] MEDS: NIFEDIPINE CR 30 MG TAB PO SCH (09:38)
[2023-10-31 11:31] VITALS: BP 130/83; PULSE 99; RESP 18; TEMP 98.4; O2SAT 99
[2023-10-31 15:20] VITALS: BP 165/90; PULSE 103; RESP 19; TEMP 98.5; O2SAT 100
[2023-10-31 19:57] VITALS: BP 151/101; PULSE 103; RESP 21; TEMP 98.8; O2SAT 100
[2023-11-01] VITALS: BP 130/93; PULSE 97; RESP 20; TEMP 98.5; O2SAT 99
[2023-11-01 00:09] VITALS: BP 164/99; PULSE 103; RESP 21; TEMP 98.8; O2SAT 100
[2023-11-01 04:00] VITALS: BP 135/90; PULSE 97; RESP 17; TEMP 98.5; O2SAT 100
[2023-11-01 05:50] LABS: BASOPHILS % 0.4 % (0.0-1.0); EOSINOPHILS # (AUTO) 0.1 (0.0-0.4); EOSINOPHILS % 0.6 % (0.0-6.0); HEMATOCRIT 49.9 % (34.2-44.1); HEMOGLOBIN 16.8 g/dL (12.0-16.0); LYMPHOCYTES # (AUTO) 3.4 (1.0-3.2); LYMPHOCYTES % 33.3 % (18.0-39.1); MEAN CORPUSCULAR HEMOGLOBIN 29.5 pg (28-32); MEAN CORPUSCULAR HGB CONC 33.7 g/dL (31-35); MEAN CORPUSCULAR VOLUME 87.7 fL (81-99); MONOCYTES # (AUTO) 0.8 (0.2-0.8); MONOCYTES % 8.1 % (4.4-11.3); NEUTROPHILS # (AUTO) 5.8 (2.1-6.9); NEUTROPHILS % 57.3 % (38.7-80.0); PLATELET COUNT 410 x10e3/uL (140-360); RED BLOOD COUNT 5.69 x10e6/uL (3.6-5.1); RED CELL DISTRIBUTION WIDTH 13.1 % (11.7-14.4); WHITE BLOOD COUNT 10.07 x10e3/uL (4.8-10.8)
[2023-11-01 06:14] LABS: ANION GAP 22.3 mmol/L (8-16); CALCIUM 10.6 mg/dL (8.4-10.2); CREATININE, SERUM 0.73 mg/dL (0.57-1.11)
[2023-11-01 06:29] LABS: POTASSIUM 3.3 mmol/L (3.5-5.1)
[2023-11-01 08:18] VITALS: BP 159/89; PULSE 100; RESP 20; TEMP 97.9; O2SAT 100
[2023-11-01] MEDS ORDERED: POTASSIUM CHLO20 ME2 PO (09:11)
[2023-11-01 09:42] LABS: ANION GAP 16.4 mmol/L (8-16); CALCIUM 10.3 mg/dL (8.4-10.2); CREATININE, SERUM 0.79 mg/dL (0.57-1.11)
[2023-11-01 09:43] LABS: POTASSIUM 3.4 mmol/L (3.5-5.1)
[2023-11-01] MEDS: POTASSIUM CHLORIDE 20 MEQ TAB CR PO ONE (10:20)
[2023-11-01 12:02] VITALS: BP 171/94; PULSE 106; RESP 21; TEMP 98.4; O2SAT 100
== END 2023-11-01 13:52 | disposition home or self-care (01) | DRG 392 ==
LOC: ER 07:20 → ERHOLD 09:55 → MED/SURG2 12:16 → OBSVTOIN 10-30 19:55
PROVIDERS: ADMIT Internal Medicine; ATTEND Internal Medicine
DX: K52.9 Noninfective gastroenteritis and colitis, unspecified (principal); E87.6 Hypokalemia; K58.0 Irritable bowel syndrome with diarrhea; I10 Essential (primary) hypertension; K21.9 Gastro-esophageal reflux disease without esophagitis; E03.9 Hypothyroidism, unspecified; G47.00 Insomnia, unspecified; K76.0 Fatty (change of) liver, not elsewhere classified; R61 Generalized hyperhidrosis; N28.89 Other specified disorders of kidney and ureter; G47.33 Obstructive sleep apnea (adult) (pediatric); Z99.81 Dependence on supplemental oxygen; E66.9 Obesity, unspecified; F12.10 Cannabis abuse, uncomplicated; Z11.52 Encounter for screening for COVID-19; Z79.890 Hormone replacement therapy; Z79.899 Other long term (current) drug therapy; Z90.49 Acquired absence of other specified parts of digestive tract; Z87.891 Personal history of nicotine dependence
CPT/HCPCS: 36415; 70491; 71045; 74177; 80048; 80053; 80307; 81001; 82550; 82948; 83690; 83735; 84100; 84132; 84443; 84484; 85025; 85610; 85730; 93005; 99284; G0378; J0360; J1170; J1200; J1630; J2405; J2765; J3480; J7030; J7050; Q0162; Q9967; U0002

== ENCOUNTER → 2024-10-09 | Outpatient (REF) | payer OTHER ==
[~2024-10-09] MED LIST changes: +IMODIUM2 MG PO; +POTASSIUM CHLO20 ME2 PO; +RESTORIL15 MG PO
== END ==
LOC: US 08:10
PROVIDERS: ATTEND Urology
DX: D41.02 Neoplasm of uncertain behavior of left kidney (principal); N28.1 Cyst of kidney, acquired
CPT/HCPCS: 76770; 76857

== ENCOUNTER → 2024-11-09 | Outpatient (REF) | payer OTHER ==
[~2024-11-09] MED LIST changes: +IOPAMIDOL 370 MG/ML 100 ML INFUS..BTL INJ ONE
[2024-11-09 09:33] LABS: CREATININE, SERUM 0.74 mg/dL (0.57-1.11)
== END ==
LOC: CT 07:45
PROVIDERS: ATTEND Urology
DX: N28.1 Cyst of kidney, acquired (principal)
CPT/HCPCS: 36415; 74178; 82565; 84520; Q9967

== ENCOUNTER 2025-04-20 14:03 | Outpatient (RCR) | payer OTHER ==
[~2025-04-20 14:03] MED LIST changes: +CELEBREX50 MG PO; +ESTRADIOL1 MG PO; -IOPAMIDOL 370 MG/ML 100 ML INFUS..BTL INJ ONE; +PROGESTERONE100 MG PO
== END 2025-05-18 ==
LOC: OT 14:03
PROVIDERS: ATTEND Plastic Surgery
DX: M19.042 Primary osteoarthritis, left hand (principal); M19.041 Primary osteoarthritis, right hand
CPT/HCPCS: 97535; L3913 ×2

== ENCOUNTER → 2025-04-23 | Day surgery (SDC) | payer OTHER ==
[~2025-04-23] MED LIST changes: +HYOSCYAMINE SULFATE 0.5 MG/ML INJ ONE; +KETAMINE HCL INJ 50 MG/ML 10 ML VIAL ONE; +LIDOCAINE HCL 2% LOCAL INJ 5 ML SDV VIAL INJ ONE; +MIDAZOLAM HCL 2 MG/2 ML VIAL ONE; +PROPOFOL IV EMULSION 10 MG/ML 20 ML VIAL ONE; +PROPOFOL IV EMULSION 50 ML IV ONE
[2025-04-23] MEDS: LACTATED RINGER'S 1,000 ML ONE (07:51)
[2025-04-23 09:28] VITALS: TEMP 97.8
[2025-04-23 09:50] VITALS: BP 127/68; PULSE 85; RESP 18; O2SAT 95
[2025-04-28 08:01] LABS: CDIFF AG QUIK CHEK NEGATIVE (NEGATIVE); CDIFF TOX QUIK CHEK NEGATIVE (NEGATIVE)
[2025-04-28 08:12] LABS: ENDOMYSIAL ANTIBODIES, IGA Negative (Negative)
[2025-04-28 09:19] LABS: TISSUE TRANSGLUTAMINASE IGA AB <2 U/mL (0-3)
== END | disposition home or self-care (01) ==
LOC: OR 06:58
PROVIDERS: ATTEND Internal Medicine Gastroenterology
DX: K51.30 Ulcerative (chronic) rectosigmoiditis without complications (principal); D12.0 Benign neoplasm of cecum; K62.89 Other specified diseases of anus and rectum; K64.8 Other hemorrhoids; K29.70 Gastritis, unspecified, without bleeding; K22.70 Barrett's esophagus without dysplasia; E11.9 Type 2 diabetes mellitus without complications; I10 Essential (primary) hypertension; Z71.89 Other specified counseling; E78.5 Hyperlipidemia, unspecified; I45.10 Unspecified right bundle-branch block; E03.9 Hypothyroidism, unspecified; E66.01 Morbid (severe) obesity due to excess calories; F41.9 Anxiety disorder, unspecified; Z01.810 Encounter for preprocedural cardiovascular examination; Z79.899 Other long term (current) drug therapy; Z68.34 Body mass index [BMI] 34.0-34.9, adult; Z71.3 Dietary counseling and surveillance
CPT/HCPCS: 45380; 45385; 82784; 83516; 83630; 83993; 86140; 86256; 87045; 87177; 87324; 87328; 87449; 93005; J1980; J2003; J2250; J2704 ×2; J7121; 45378